=== PATIENT | female | born 2000 | race Caucasian/White ===

== ENCOUNTER → 2019-03-02 | Outpatient (CLI) | payer BC ==
--- NOTE | 2019-03-02 19:40 | Diagnostic Imaging Report ---
EXAMINATION: Magnetic resonance imaging of the right knee without intravenous contrast DATE: March 02, 2019. COMPARISON: None. INDICATION: 18-year-old female, right knee pain and swelling. Injury on February 19, 2019. TECHNIQUE: Multiplanar, multisequence non contrast enhanced MR imaging was accomplished. FINDINGS: MENISCI: There is signal in the posterior horn of the medial meniscus which does not contact an articular surface although does appear to be fairly prominent in fluid signal. There is also some loss of the expected normal contour of the very peripheral margin of the medial meniscus at this location. This is suspicious for a peripheral medial meniscal tear. Additional components of the medial meniscus are intact. The lateral meniscus is intact. LIGAMENTS AND TENDONS: The anterior and posterior cruciate ligaments are intact. There is a partial tear of the superficial component of the medial collateral ligament complex. The meniscofemoral and meniscotibial ligaments are not well discretely identified and potentially could be torn, particularly the meniscofemoral ligament. The iliotibial band, mid third lateral capsular ligament, fibular collateral ligament, biceps femoris tendon and conjoined tendon are intact. The quadriceps tendon and patella ligament are intact. JOINT: The articular cartilage surfaces are intact. There is no knee joint effusion, prominent synovitis, or intra-articular body. BONE: There is prominent edema-like signal in the lateral femoral condyle and less prominent in the lateral tibial plateau without identified fracture line at either location. These are compatible with sites of bone contusion. BURSAE AND SOFT TISSUES: There is prominent soft tissue edema adjacent to the superficial component of the medial collateral ligament complex. There is no Morton's cyst. IMPRESSION: 1. Findings suspicious for a potential tear involving the peripheral aspect of the posterior horn of the medial meniscus. 2. Intact lateral meniscus. 3. Intact anterior and posterior cruciate ligaments. 4. Partial tear of the superficial component of the medial collateral ligament complex. 5. Bone contusions of the lateral femoral condyle and lateral tibial plateau. 6. Intact articular cartilage. No knee joint effusion. Dictated by: Dictated on workstation # [id number]
== END ==
LOC: RAD 15:08
PROVIDERS: ATTEND Family Medicine
DX: S83.281A Other tear of lateral meniscus, current injury, right knee, initial encounter (principal); S80.11XA Contusion of right lower leg, initial encounter
CPT/HCPCS: 73721

== ENCOUNTER → 2021-07-21 | Outpatient (CLI) | payer BC ==
--- NOTE | 2021-07-21 15:21 | Diagnostic Imaging Report ---
EXAMINATION: Magnetic resonance imaging of the left shoulder without contrast. DATE: July 21, 2021. COMPARISON: None. HISTORY: 20-year-old female, left shoulder pain. Injury a couple of weeks ago. TECHNIQUE: Magnetic Resonance Imaging sequences were performed of the shoulder without contrast. FINDINGS: ROTATOR CUFF, LIGAMENTS, TENDONS, AND MUSCLES: The supraspinatus, infraspinatus, teres minor, and subscapularis tendons and muscles are intact. There is normal rotator cuff muscle bulk and signal. LONG HEAD OF BICEPS: The biceps labral attachment and long head of the biceps tendon are intact. The long head of the biceps tendon is normally positioned within the bicipital groove. GLENOHUMERAL JOINT: The humeral head is currently normally positioned relative to the glenoid. There is a displaced tear of the anterior labrum extending from at least the 2 o'clock position in the mid anterior labrum to the 5:30 position of the inferior labrum. There is periosteal stripping and displacement of labral ligamentous tissue along the length of the labral tear. There is a linear area of low signal within the glenohumeral joint space on sagittal T2 fat saturation sequence image 14 and coronal PD sequence image 9 which likely relates to flipped and displaced labral ligamentous tissue. There is no discretely identified cartilage defect. There is a small glenohumeral joint effusion. There is no identified paralabral cyst. ACROMIOCLAVICULAR JOINT: The acromioclavicular joint is normally aligned. The coracoclavicular and coracoacromial ligaments are intact. There are no degenerative changes of the acromioclavicular joint. BONE: There is no os acromiale. There is an acute Hill-Sachs deformity. The Hill-Sachs deformity measures approximately 18 mm in length with an estimated depth of approximately 3 mm. There is no fracture of the bony glenoid. The additional bone marrow signal is unremarkable. BURSAE AND SOFT TISSUES: The bursae and soft tissue surrounding the shoulder are unremarkable. IMPRESSION: 1. Acute Hill-Sachs deformity, consistent with a recent anterior shoulder dislocation. No fracture of the bony glenoid. 2. Large significantly displaced tear of the anterior labrum extending from approximately the 2 o'clock position of the mid anterior labrum to the 5:30 position of the inferior labrum. There is displaced labral ligamentous tissue extending within the glenohumeral joint space. 3. No identified cartilage defect. 4. Intact rotator cuff and proximal long head of the biceps tendon. 5. Intact acromioclavicular joint. Dictated by: Dictated on workstation # [id number]
== END ==
LOC: RAD 13:15
PROVIDERS: ATTEND Orthopaedic Surgery
DX: S43.492A Other sprain of left shoulder joint, initial encounter (principal); S42.292A Other displaced fracture of upper end of left humerus, initial encounter for closed fracture; X58.XXXA Exposure to other specified factors, initial encounter
CPT/HCPCS: 73221

== ENCOUNTER 2022-03-07 11:17 | Emergency (ER) | payer BC ==
[~2022-03-07] VITALS: Ht 175.3 cm; Wt 90.7 kg
--- NOTE | 2022-03-07 12:39 | ED Upper Extremity ---
General Chief Complaint: Upper Extremity Stated Complaint: LEFT SHOULDER INJURY Nursing Triage Note: PT AMB TO TRIAGE W C/O POSS DISLOCATED LEFT SHOULDER. PT WAS PLAYING RUGBY AND AT APPROX 1110 SHE STATES SHE WENT TO TACKLE ANOTHER PLAYER WHEN THEY COLLIDED SHOULDERS, PT REPORTS SHE HAS DISLOCATED IT IN THE PAST (JUN 2021). PT A&OX4. Source: patient Exam Limitations: no limitations (BRADFORD BURRELL APRN) History of Present Illness Date Seen by Provider: Mar 07, 2022 Time Seen by Provider: 12:30 Initial Comments Patient is a previously healthy 21 yo F who presents to the ED with L shoulder pain that began after she tackled another player during a rugby game. She states the pain was immediate. She states she sustained a similar injury while playing rugby in the past and it was a shoulder dislocation that was reduced on the field by the team's sap trainer. Denies any other injuries to the L shoulder in the past. No other pain or injury currently. Pain/Injury Location: left shoulder Method of Injury: sports injury (BRADFORD BURRELL APRN) Allergies and Home Medications Allergies Coded Allergies: clarithromycin (Verified Allergy, Unknown, 03/07/22) Patient Home Medication List Home Medication List Reviewed: Yes (BRADFORD BURRELL APRN) Review of Systems Constitutional: no symptoms reported EENTM: no symptoms reported Respiratory: no symptoms reported Cardiovascular: no symptoms reported Gastrointestinal: no symptoms reported Genitourinary: no symptoms reported Musculoskeletal: see HPI Skin: no symptoms reported (BRADFORD BURRELL APRN) Past Lxzjynn-Irqnvn-Ppxcbn Hx Patient Social History Tobacco Use?: No Use of E-Cig and/or Vaping dev: No Substance use?: No Alcohol Use?: Yes Alcohol Frequency: Several times a month Pt feels they are or have been: No (BRADFORD BURRELL APRN) Immunizations Up To Date Influenza Vaccine Up-to-Date: No; Not Current First/Initial COVID19 Vaccinat: 2020 Second COVID19 Vaccination Gaston: 2020 Third COVID19 Vaccination Date: NONE COVID19 Vaccine 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 oz. 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 Ack. Understanding Agreement on procedure with pt: Yes Breath Sounds per Auscultation: Clear Heart Sounds per Auscultation: Regular Airway Exam: Mouth opens >2 fingers, Neck Full Range of Motion, Visulation of Uvula Sedation Adminstration Time: 15:49 Total Time spent in CS 8 Conscious sedation for left anterior shoulder dislocation. Etomidate 20 mg IV used for sedation via slow IV push under my supervision. Patient did have adequate sedation with adequate pain control without adverse events. Patient remained with O2 saturation 100% on 2 L via nasal cannula and end-tidal CO2 remained 35-40 throughout procedure. At 1557, patient able to answer name and talk. She states her shoulder feels much better after reduction was complete. Denies significant distress. (GAGE ALMANZAR MD) Splinting and Joint Reduction : Location: L shoulder Pre-Proc Neuro Vasc Exam: normal Post-Proc Neuro Vasc Exam: normal Progress reduced with a combination of traction, abduction, external rotation, and scapular manipulation Joint Reduction Site: shoulder (L) Reduction Attempts: 1 Pre-Procedure NV Exam: Yes post joint reduction film: joint reduced Arm Sling: Orcas (BRADFORD BURRELL APRN) Progress/Results/Core Measures Results/Orders My Orders Orders - GAGE ALMANZAR MD Etomidate Injection (Amidate Injection) (03/07/22 15:15) (GAGE ALMANZAR MD) Medications Given in ED Current Medications Medications Dose Ordered Sig/Hang Route Start Time Stop Time Status Last Admin Dose Admin Etomidate 20 mg ONCE ONCE IV 03/07/22 15:15 03/07/22 15:16 DC 03/07/22 15:49 20 MG Fentanyl Citrate 50 mcg ONCE ONCE IM 03/07/22 14:00 03/07/22 14:01 DC 03/07/22 14:00 50 MCG Ketorolac Tromethamine 15 mg ONCE ONCE IVP 03/07/22 15:30 03/07/22 15:31 DC 03/07/22 15:30 15 MG (GAGE ALMANZAR MD) Vital Signs/I&O 03/07/22 03/07/22 12:20 15:46 Temp 36.7 Pulse 66 Resp 18 B/P (MAP) 101/65 (77) Pulse Ox 100 O2 Delivery Room Air Room Air (GAGE ALMANZAR MD) Blood Pressure Mean: 77 Progress Progress Note : Progress Note Patient with anterior dislocation as seen by MANAGER PHP. I have examined the patient and do note left anterior shoulder dislocation. Exam prior to conscious sedatio n complete by me without significant abnormalities noted including with airway, neck, lungs or heart. I did explain the benefits and risks at length with the patient and she accepted sedation for reduction. 1606: Reduction complete and pending x-ray but patient doing well and tolerated procedure well. Reduction by Bradford Burrell, MANAGER PHP. Sedation performed and managed by me. (GAGE ALMANZAR MD) Departure Impression Primary Impression: Anterior dislocation of left shoulder Qualified Codes: S43.015A - Anterior dislocation of left humerus, initial encounter Disposition: HOME, SELF-CARE Condition: Improved Departure-Patient Inst. Decision time for Depature: 16:25 (BRADFORD BURRELL APRN) Referrals: MARIIA RAZA MD (PCP/Family) Primary Care Physician Patient Instructions: Moderate Sedation in Adults (DC), Shoulder Dislocation (DC) BRADFORD BURRELL APRN Mar 07, 2022 12:39 GAGE ALMANZAR MD Mar 07, 2022 16:06
--- NOTE | 2022-03-07 13:33 | Diagnostic Imaging Report ---
HISTORY: Left shoulder injury with pain. TECHNIQUE: 2 views of the left shoulder COMPARISON: None FINDINGS: There is anterior dislocation of the left glenohumeral joint. No acute fracture is seen. Alignment otherwise appears normal. IMPRESSION: Anterior dislocation of the left glenohumeral joint. Dictated by: Dictated on workstation # [id number]
[2022-03-07] MEDS ORDERED: fentaNYL INJ 100 MCG/2 ML AMP IVP ONE (13:45)
[2022-03-07] MEDS ORDERED: fentaNYL INJ 100 MCG/2 ML AMP IM ONE (14:00)
[2022-03-07] MEDS ORDERED: ETOMIDATE IV SOLN 20 MG/10 ML VIAL IV ONE (15:15)
[2022-03-07] MEDS ORDERED: KETOROLAC 30 MG/ML VIAL IVP ONE (15:30)
--- NOTE | 2022-03-07 16:37 | Diagnostic Imaging Report ---
HISTORY: Postreduction view of the left shoulder. TECHNIQUE: Frontal view of the left shoulder. COMPARISON: Radiographs from the same day. FINDINGS: No acute fracture is seen in the left shoulder. Alignment appears normal on this frontal view. AC joint alignment appears normal. IMPRESSION: Normal alignment of the left glenohumeral joint on this frontal view. Dictated by: Dictated on workstation # [id number]
[2022-03-07 16:54] VITALS: BP 111/65
== END 2022-03-07 16:54 | disposition home or self-care (01) ==
LOC: EDUNIT# 11:17 → ER 11:21
DX: S43.005A Unspecified dislocation of left shoulder joint, initial encounter (principal); W50.0XXA Accidental hit or strike by another person, initial encounter; Y93.63 Activity, rugby
CPT/HCPCS: 73020; 73030; 93041